=== PATIENT | male | born 1965 | race Two or more races ===

== ENCOUNTER 2018-02-03 21:01 | Emergency (ER) | payer OTHER ==
[~2018-02-03] VITALS: Ht 172.7 cm; Wt 86.2 kg
[2018-02-03] MEDS ORDERED: CIALIS5 MG PO (21:14)
== END 2018-02-04 03:09 | disposition home or self-care (01) ==
LOC: ER 21:01
DX: H93.8X3 Other specified disorders of ear, bilateral (principal)

== ENCOUNTER 2025-07-01 00:43 | Emergency (ER) | payer OTHER ==
[~2025-07-01] VITALS: Ht 180.3 cm; Wt 90.3 kg
[~2025-07-01 00:43] MED LIST: CIALIS5 MG PO
[2025-07-01] MEDS ORDERED: CIALIS20 MG PO (00:55)
[2025-07-01] MEDS ORDERED: BACLOFEN10 MG PO (00:55)
[2025-07-01] MEDS ORDERED: DEXAMETHASONE4 MG PO (00:56)
[2025-07-01] MEDS ORDERED: REMERON15 M1 PO (00:57)
[2025-07-01] MEDS ORDERED: URECHOLINE10 MG PO (00:57)
[2025-07-01] MEDS ORDERED: DEXAMETHASONE SODIUM PHOSPHATE 4 MG/ML VIAL IM ONE (01:30)
[2025-07-01] MEDS ORDERED: AZITHROMYCIN 500 MG TABLET PO ONE (01:30)
[2025-07-01] MEDS ORDERED: GUAIFENESIN/DEXTROMETHORPHAN 100MG/10ML BLIST.PACK PO ONE (01:30)
[2025-07-01 02:36] LABS: BASO % 0.1 % (0.1-1.2); EOS # 0.01 (0.04-0.54); EOS % 0.1 % (0.7-7.0); LYMPH # 0.80 (1.18-3.74); LYMPH % 6.9 % (19.3-53.1); MEAN PLATELET VOLUME 9.80 fl (9.4-12.4); MONO # 0.43 (0.24-0.82); MONO % 3.7 % (4.7-12.5); NEUT # 10.32 (1.56-6.13); NEUT % 88.9 % (34.0-71.1); RED CELL DISTRIBUTION WIDTH 13.7 % (11.6-14.4)
[2025-07-01 02:52] LABS: COVID-19 AG NEGATIVE (NEGATIVE)
[2025-07-01] MEDS ORDERED: TUSNEL LIQUID178 ML PO (03:39)
[2025-07-01] MEDS ORDERED: ZITHROMAX500 MG PO (03:39)
== END 2025-07-01 03:45 | disposition home or self-care (01) ==
LOC: ER 00:43
PROVIDERS: General Practice
DX: J06.9 Acute upper respiratory infection, unspecified (principal); J00 Acute nasopharyngitis [common cold]; Z20.822 Contact with and (suspected) exposure to COVID-19